=== PATIENT | female | born 1990 | race African-American/Black ===

== ENCOUNTER 2017-11-07 07:13 | Emergency (ER) | payer BC, MEDICAID ==
[~2017-11-07] VITALS: Ht 160 cm; Wt 80.0 kg
[2017-11-07] MEDS ORDERED: ONDANSETRON 4MG ODT PO STA (07:46)
[2017-11-07 08:01] LABS: EOSINOPHILS % 1.6 % (0.0-5.0); HEMATOCRIT. 28.9 % (36.0-48.0); HEMOGLOBIN. 8.9 g/dL (12.0-16.0); LYMPHOCYTES % 30.3 % (20.0-50.0); MEAN CORPUSCULAR HEMOGLOBIN 20.8 pg (28.0-32.0); MEAN CORPUSCULAR VOLUME 67.5 fL (81.0-99.0); MEAN PLATELET VOLUME 7.3 fl (7.4-10.4); NEUTROPHILS % 56.1 % (40.0-76.0); PLATELET 303 x1000/uL (130-400); RED BLOOD CELL COUNT 4.28 mill/uL (4.2-5.4); RED CELL DISTRIBUTION WIDTH 18.2 % (11.6-14.6)
[2017-11-07 08:06] LABS: CHLORIDE 109 mEq/L (98-107)
[2017-11-07 08:32] LABS: PLATELET ESTIMATE NORMAL
[2017-11-07 09:32] LABS: HCG SCREEN NEGATIVE
[2017-11-07 11:00] VITALS: BP 130/88
[2017-11-07 11:21] LABS: CLARITY URINE CLEAR (CLEAR); COLOR URINE YELLOW (YELLOW); KETONES URINE NEGATIVE (NEGATIVE); LEUKOCYTE ESTERASE URINE NEGATIVE (NEGATIVE); NITRITE URINE NEGATIVE (NEGATIVE); OCCULT BLOOD URINE NEGATIVE (NEGATIVE); PROTEIN URINE NEGATIVE (NEGATIVE); UROBILINOGEN URINE 0.2 E.U./dL (0.2-1.0)
== END 2017-11-07 12:15 | disposition home or self-care (01) ==
LOC: ER 08:14
DX: R11.2 Nausea with vomiting, unspecified (principal); D64.9 Anemia, unspecified; Z88.5 Allergy status to narcotic agent
CPT/HCPCS: 36415; 80053; 81003; 84703; 85025; 99284; Q0162